=== PATIENT | male | born 1950 | race Caucasian/White ===

== ENCOUNTER → 2017-11-02 | Outpatient (CLI) | payer OTHER, BC ==
[~2017-11-02] VITALS: Ht 175.3 cm; Wt 89.8 kg
[~2017-11-02] MED LIST: ALBU1.257 NEB; ATOR20TA50 PO; BUDE80AE3 NEB; CARV3.1240 PO; CLOP75TA41 PO; FLUT50SP13; HYDR-4683 PO; METO25TA62 PO; NAPR500T31 PO; RAMI10CA38 PO; SIMV-8 PO
== END | disposition home or self-care (01) ==
LOC: Rad HDHVI 10:19
PROVIDERS: ATTEND Internal Medicine Cardiovascular Disease
DX: I08.1 Rheumatic disorders of both mitral and tricuspid valves (principal); I48.1 Persistent atrial fibrillation; R06.02 Shortness of breath; R00.2 Palpitations; G45.9 Transient cerebral ischemic attack, unspecified
CPT/HCPCS: 78452; 93017; 93306; 96374; A9500